=== PATIENT | female | born 1975 | race Caucasian/White ===

== ENCOUNTER 2016-08-26 23:43 | Emergency (ER) | payer OTHER ==
[~2016-08-26] VITALS: Ht 157.5 cm; Wt 81.7 kg
[2016-08-26 23:48] VITALS: BP 108/67
[2016-08-27] MEDS ORDERED: NAPROSYN500 MG PO (00:23)
== END 2016-08-27 00:39 | disposition home or self-care (01) ==
LOC: ER 23:43
DX: M79.644 Pain in right finger(s) (principal); F41.8 Other specified anxiety disorders; E78.00 Pure hypercholesterolemia, unspecified; Z87.442 Personal history of urinary calculi; Z90.49 Acquired absence of other specified parts of digestive tract; Z98.890 Other specified postprocedural states